=== PATIENT | male | born 1950 | race Caucasian/White ===

== ENCOUNTER 2018-04-17 23:25 | Emergency (ER) | payer OTHER ==
[~2018-04-17] VITALS: Ht 175.3 cm; Wt 77.1 kg
[2018-04-17 23:28] VITALS: BP_SYST 159
[2018-04-17 23:40] VITALS: BP_SYST 159
== END 2018-04-17 23:35 ==
LOC: SED 23:25
DX: Z02.83 Encounter for blood-alcohol and blood-drug test (principal)

== ENCOUNTER 2018-04-18 00:10 | Emergency (ER) | payer OTHER ==
[~2018-04-18] VITALS: Ht 175.3 cm; Wt 77.1 kg
[2018-04-18 00:14] VITALS: BP_SYST 170
[2018-04-18 00:33] VITALS: BP_SYST 170
== END 2018-04-18 00:33 ==
LOC: SED 00:10
DX: S50.811A Abrasion of right forearm, initial encounter (principal); S60.511A Abrasion of right hand, initial encounter; I10 Essential (primary) hypertension; R03.0 Elevated blood-pressure reading, without diagnosis of hypertension; X58.XXXA Exposure to other specified factors, initial encounter; Y93.89 Activity, other specified; Y92.89 Other specified places as the place of occurrence of the external cause; Y99.8 Other external cause status
CPT/HCPCS: 99283

== ENCOUNTER 2022-04-23 19:27 | Emergency (ER) | payer OTHER ==
[~2022-04-23] VITALS: Ht 175.3 cm; Wt 70.3 kg
[2022-04-23 19:30] VITALS: BP_SYST 150
--- NOTE | 2022-04-23 19:33 | NUR ---
BIBA FOR C/O LOWER ABDOMINAL PAIN WITH N/V X1 DAY. NO DIARRHEA. ALSO, STARTED HAVING PAINFUL URINATION WELL. PATIENT A/O AND PROVIDING URINE SAMPLE AT THIS TIME.
--- NOTE | 2022-04-23 19:40 | NUR ---
ER Dr. FRANCIS at bedside examining patient.
[2022-04-23 19:44] LABS: BILIRUBIN,URINE NEGATIVE (NEGATIVE); BLOOD, URINE 3+ (NEGATIVE); CLARITY/URINE CLOUDY (CLEAR); COLOR,URINE YELLOW (YELLOW); GLUCOSE,URINE NEGATIVE (NEGATIVE); KETONES,URINE NEGATIVE (NEGATIVE); LEUKOCYTE ESTERASE ,URINE 3+ (NEGATIVE); NITRITE, URINE POSITIVE (NEGATIVE); PROTEIN URINE 3+ (NEGATIVE); UROBILINOGEN,URINE 0.2 (0.2-1.0)
--- NOTE | 2022-04-23 19:50 | NUR ---
PT PLACED IN ROOM ATTACHED TO CARDIAC, SaO2 MONITOR. REPORT RECEIVED. PT ASSESSED.
[2022-04-23 19:57] LABS: BACTERIA,URINE MODERATE /HPF (None Seen); WBC,URINE >100 /HPF (0-3)
[2022-04-23 19:58] LABS: MUCUS,URINE None Seen /LPF (None Seen)
--- NOTE | 2022-04-23 20:10 | NUR ---
IV ESTABLISHE# 20 gauge angiocath placed to . Use of asceptic technique. Opsite placed over site. Blood return noted. Blood for lab drawn from site. Flushed with 10 cc of normal saline. No evidence of infiltration noted. Patient tolerated well.
[2022-04-23 21:24] LABS: HEMATOCRIT 38.8 % (36-54); HEMOGLOBIN 13.3 g/dL (14.0-18.0); MEAN CORPUSCULAR HEMOGLOBIN 34 pg (27-31); MEAN CORPUSCULAR HGB CONC 34 % (32-36); MEAN CORPUSCULAR VOLUME 98 fL (79.0-98.0); PLATELET COUNT (AUTO) 249 K/uL (130-430); RED BLOOD CELL COUNT(AUTO) 3.96 MIL/uL (4.2-6.2); RED CELL DISTRIBUTION WIDTH 13.7 % (9.0-15.0)
[2022-04-23 21:25] LABS: CALCIUM 9.2 mg/dL (8.4-11.0); CREATININE 1.64 mg/dL (0.55-1.30); POTASSIUM 3.8 mmol/L (3.5-5.1)
[2022-04-23] MEDS ORDERED: cefTRIAXone 1 GM VIAL ONE ×2 (21:27→22:40)
[2022-04-23] MEDS ORDERED: cefTRIAXone 1 GM in D5W 50 ML IV ONE ×2 (21:30→22:45)
[2022-04-23 21:31] LABS: ALBUMIN 3.3 g/dL (3.4-4.8); TOTAL BILIRUBIN 0.8 mg/dL (0.0-1.0)
[2022-04-23 21:42] LABS: BAND % (MANUAL) 18 % (0-6); LYMPHOCYTES % (MANUAL) 7 % (20-46); MONOCYTES % (MANUAL) 0 % (0-11)
[2022-04-23 21:43] LABS: BASOPHILS % (MANUAL) 0 % (0-2); EOSINOPHILS % (MANUAL) 0 % (0-7)
--- NOTE | 2022-04-23 21:58 | NUR ---
PT RESTING RESP EASY, MM PINK, NO APPARET DISTRESS
[2022-04-23] MEDS ORDERED: CIPR500T5 PO (22:31)
[2022-04-23] MEDS ORDERED: PHEN-726 PO (22:31)
[2022-04-23 23:03] VITALS: BP_SYST 107
--- NOTE | 2022-04-23 23:03 | NUR ---
Patient given written and verbal discharge instructions and verbalizes understanding. ER MD discussed with patient the results and treatment provided. Patient in stable condition. ID arm band removed. IV catheter removed intact and dressing applied, no active bleeding. Rx of X2 given. Patient educated on pain management and to follow up with PMD. Pain Scale . Opportunity for questions provided and answered. Medication side effect fact sheet provided.
== END 2022-04-23 23:02 | disposition home or self-care (01) ==
LOC: SED 19:27
DX: N39.0 Urinary tract infection, site not specified (principal); N40.0 Benign prostatic hyperplasia without lower urinary tract symptoms; R35.0 Frequency of micturition; R30.0 Dysuria; R10.30 Lower abdominal pain, unspecified; F17.200 Nicotine dependence, unspecified, uncomplicated; Z79.899 Other long term (current) drug therapy
CPT/HCPCS: 99284; 96365; 85027; 80053; 81000; 83690; 85007; 87086; 36415; J0696

== ENCOUNTER 2023-02-10 20:50 | Emergency (ER) | payer OTHER ==
[~2023-02-10] VITALS: Ht 175.3 cm; Wt 72.6 kg
[~2023-02-10 20:50] MED LIST: CIPR500T5 PO; PHEN-726 PO
[2023-02-10 21:17] VITALS: BP_SYST 102; PULSE 74; RESP 18; TEMP 98.4; O2SAT 98
[2023-02-10] MEDS ORDERED: cephALEXin 500 MG CAPSULE PO ONE (22:30)
[2023-02-10] MEDS ORDERED: CEPH-548 PO (22:33)
[2023-02-10] MEDS ORDERED: HYDC2.5% TP (22:33)
[2023-02-10 22:46] VITALS: BP_SYST 102; PULSE 74; RESP 18; TEMP 98.4; O2SAT 98
== END 2023-02-10 22:46 | disposition home or self-care (01) ==
LOC: SED 20:50
DX: T63.441A Toxic effect of venom of bees, accidental (unintentional), initial encounter (principal); L03.313 Cellulitis of chest wall; I10 Essential (primary) hypertension; Z79.899 Other long term (current) drug therapy; Y92.89 Other specified places as the place of occurrence of the external cause
CPT/HCPCS: 99283